=== PATIENT | male | born 1985 | race African-American/Black ===

== ENCOUNTER 2017-09-28 23:16 | Emergency (ER) | payer MEDICAID | END 2017-09-28 23:30 | disposition left against medical advice (07) | LOC: ER 23:16 | DX: R05 Cough (principal); Z53.21 Procedure and treatment not carried out due to patient leaving prior to being seen by health care provider ==

== ENCOUNTER 2018-08-15 00:06 | Emergency (ER) | payer MEDICAID ==
[~2018-08-15] VITALS: Ht 177.8 cm; Wt 101.0 kg
[2018-08-15 06:01] VITALS: BP 122/74
== END 2018-08-15 06:21 | disposition home or self-care (01) ==
LOC: ER 00:06
DX: S80.01XA Contusion of right knee, initial encounter (principal); M54.9 Dorsalgia, unspecified; W18.39XA Other fall on same level, initial encounter; Y93.89 Activity, other specified; Y92.89 Other specified places as the place of occurrence of the external cause; Y99.8 Other external cause status
CPT/HCPCS: 73562; 99283

== ENCOUNTER 2021-05-30 20:46 | Emergency (ER) | payer MEDICAID ==
[~2021-05-30] VITALS: Ht 177.8 cm; Wt 104.0 kg
[2021-05-31] MEDS ORDERED: NAPR-1176 MT (00:11)
[2021-05-31] MEDS ORDERED: IBUPROFEN 600MG TABLET PO ONE (00:15)
[2021-05-31 00:23] VITALS: BP 130/83
== END 2021-05-31 00:37 | disposition home or self-care (01) ==
LOC: ER 20:46
DX: G89.29 Other chronic pain (principal); M54.59 Other low back pain; R03.0 Elevated blood-pressure reading, without diagnosis of hypertension
CPT/HCPCS: 99282

== ENCOUNTER 2022-04-19 15:45 | Emergency (ER) | payer MEDICAID ==
[~2022-04-19] VITALS: Ht 177.8 cm; Wt 107.0 kg
[~2022-04-19 15:45] MED LIST: NAPR-1176 MT
[2022-04-19 15:51] VITALS: BP 137/89
== END 2022-04-19 20:00 | disposition left against medical advice (07) ==
LOC: ER 15:45
DX: Z53.21 Procedure and treatment not carried out due to patient leaving prior to being seen by health care provider (principal)

== ENCOUNTER 2024-07-13 03:25 | Emergency (ER) | payer MEDICAID ==
[~2024-07-13] VITALS: Ht 185.4 cm; Wt 113.8 kg
[2024-07-13 03:41] VITALS: O2SAT 97
[2024-07-13 04:28] LABS: CLARITY URINE CLEAR (CLEAR); COLOR URINE YELLOW (YELLOW); GLUCOSE URINE NEGATIVE (NEGATIVE); KETONES URINE NEGATIVE (NEGATIVE); LEUKOCYTE ESTERASE URINE NEGATIVE (NEGATIVE); NITRITE URINE NEGATIVE (NEGATIVE); OCCULT BLOOD URINE NEGATIVE (NEGATIVE); PH URINE 5.5 (4.5-8.0); PROTEIN URINE NEGATIVE (NEGATIVE)
[2024-07-13] MEDS ORDERED: DOXY100C5 MT (04:36)
[2024-07-13] MEDS: CEFTRIAXONE SODIUM 500MG VIAL IM ONE (04:45)
[2024-07-13 05:00] VITALS: BP 149/90; PULSE 75; RESP 16; TEMP 36.66960; O2SAT 99
[2024-07-14 13:10] LABS: CHLAMYDIA TRACHOMATIS NAA Negative (Negative); NEISSERIA GONORRHOEAE NAA Negative (Negative)
== END 2024-07-13 05:41 | disposition home or self-care (01) ==
LOC: ER 03:39
DX: A64 Unspecified sexually transmitted disease (principal)
CPT/HCPCS: 87491; 87591; 81003; 96372; 99283; J0696; Z7610